=== PATIENT | female | born 1990 | race Caucasian/White ===

== ENCOUNTER 2017-01-24 14:18 | Inpatient (IN) | payer BC, OTHER ==
[~2017-01-24] VITALS: Ht 152.4 cm; Wt 73.2 kg
[2017-01-24] MEDS ORDERED: SODIUM CHLORIDE 0.9% 1,000 ML IV ONE (15:41)
[2017-01-24] MEDS ORDERED: ONDANSETRON 2MG/ML, 2ML IVPush ONE (16:00)
[2017-01-24] MEDS ORDERED: SODIUM CHLORIDE FLUSH 10ML SYR IVF ONE (16:00)
[2017-01-24] MEDS ORDERED: SODIUM CHLORIDE 0.9% 1,000ML IVBOLUS ONE (16:00)
[2017-01-24] MEDS ORDERED: ONDANSETRON 2MG/ML, 2ML ONE ×2 (16:02→23:05)
[2017-01-24] MEDS ORDERED: HYDROmorphone 1 MG/ML, 1ML ONE ×3 (16:02→23:35)
[2017-01-24] MEDS: HYDROmorphone 1 MG/ML, 1ML IVPush PRN ×2 (16:05→17:01)
[2017-01-24 16:14] LABS: ASPARTATE AMINO TRANSFERASE 14 U/L (15-37); BLOOD UREA NITROGEN 13 mg/dL (7-18)
[2017-01-24] MEDS ORDERED: OMNIPAQUE 350 MG/ML, 100ML BOTTLE ONE (18:43)
[2017-01-24] MEDS ORDERED: morphine SULFATE 10 MG/ML, 1ML ONE ×2 (19:21→20:49)
[2017-01-24] MEDS ORDERED: MORPHINE SULFATE 4 MG/ML, 1ML IVPush PRN (19:30)
[2017-01-24] MEDS ORDERED: CEFOTETAN PMX 2GM/50ML 50 ML IV ONE (19:30)
[2017-01-24] MEDS ORDERED: METH500T97 PO (19:41)
[2017-01-24] MEDS ORDERED: ONDA4TAB7 PO (19:42)
[2017-01-24] MEDS ORDERED: OXYC1TAB9 PO (19:42)
[2017-01-24] MEDS ORDERED: MORPHINE SULFATE 4 MG/ML, 1ML IVPush ONE ×2 (20:30→21:00)
[2017-01-24] MEDS ORDERED: BUPIVACAINE/PF-EPI 0.5% 1:200K ONE (22:04)
[2017-01-24] MEDS: FENTANYL PF 100 MCG/2ML IV PRN ×2 (22:28→22:39)
[2017-01-24] MEDS ORDERED: FENTANYL PF 100 MCG/2ML ONE (22:29)
[2017-01-24] MEDS ORDERED: MIDAZOLAM 1 MG/ML, 2ML ONE (23:03)
[2017-01-24] MEDS ORDERED: FENTANYL PF 250 MCG/5ML ONE (23:03)
[2017-01-24] MEDS ORDERED: METOCLOPRAMIDE 5 MG/ML, 2ML ONE (23:05)
[2017-01-24] MEDS ORDERED: NEOSTIGMINE 1 MG/ML, 10ML ONE (23:05)
[2017-01-24] MEDS ORDERED: DEXAMETHASONE 4 MG/ML, 1ML ONE (23:05)
[2017-01-24] MEDS ORDERED: ROCURONIUM 10 MG/ML ONE (23:05)
[2017-01-24] MEDS ORDERED: KETOROLAC 30 MG/1 ML ONE (23:05)
[2017-01-24] MEDS ORDERED: PROPOFOL 10 MG/ML, 20ML ONE (23:05)
[2017-01-24] MEDS ORDERED: SUCCINYLCHOLINE 20 MG/ML, 10ML ONE (23:05)
[2017-01-24] MEDS ORDERED: GLYCOPYRROLATE 0.2MG/1ML ONE (23:05)
[2017-01-24] MEDS ORDERED: BUPIVACAINE/PF-EPI 0.5% 1:200K IM ONE (23:13)
[2017-01-24] MEDS ORDERED: hydrALAzine 20 MG/ML, 1ML IV PRN (23:30)
[2017-01-24] MEDS ORDERED: MEPERIDINE/PF 25MG/0.5ML IVPush PRN (23:30)
[2017-01-24] MEDS ORDERED: METOCLOPRAMIDE 5 MG/ML, 2ML IV PRN (23:30)
[2017-01-24] MEDS ORDERED: ALBUTEROL/IPRATROPIUM 2.5MG/0.5MG, 3 ML NPPB PRN (23:30)
[2017-01-24] MEDS ORDERED: ONDANSETRON 2MG/ML, 2ML IVPush PRN (23:30)
[2017-01-24] MEDS ORDERED: OXYcodone 5 MG/5 ML ORAL.SOL UDC PO PRN (23:30)
[2017-01-24] MEDS ORDERED: LABETALOL 5MG/ML, 20ML IV PRN (23:30)
[2017-01-24] MEDS ORDERED: FENTANYL PF 100 MCG/2ML IV PRN (23:30)
[2017-01-24] MEDS ORDERED: MIDAZOLAM 1 MG/ML, 2ML IV PRN (23:30)
[2017-01-24] MEDS ORDERED: ACETAMINOPHEN 325 MG TABLET PO PRN (23:30)
[2017-01-24] MEDS ORDERED: PROMETHAZINE 25 MG/ML, 1ML IV PRN (23:30)
[2017-01-25] MEDS ORDERED: ACETAMINOPHEN 325 MG/10.15 ML UDC ONE (00:01)
[2017-01-25] MEDS ORDERED: FENTANYL PF 100 MCG/2ML ONE (00:01)
[2017-01-25] MEDS ORDERED: ACETAMINOPHEN 650 MG/20.3 ML UDC ONE (00:01)
[2017-01-25] MEDS ORDERED: OXYcodone 5 MG/5 ML ORAL.SOL UDC ONE (00:02)
[2017-01-25] MEDS ORDERED: HYDROmorphone 1 MG/ML, 1ML ONE (00:08)
[2017-01-25] MEDS: HYDROmorphone 1 MG/ML, 1ML IV PRN ×10 (00:10→22:46)
[2017-01-25] MEDS: FENTANYL PF 100 MCG/2ML IV PRN ×2 (00:18→00:29)
[2017-01-25] MEDS: KETOROLAC 30 MG/1 ML IV PRN ×3 (01:58→20:03)
[2017-01-25] MEDS ORDERED: LORazepam 1MG TABLET PO PRN (02:00)
[2017-01-25] MEDS ORDERED: ENALAPRILAT 1.25 MG/ML, 2ML IV PRN (02:00)
[2017-01-25] MEDS ORDERED: ACETAMINOPHEN 650 MG SUPP PR PRN (02:00)
[2017-01-25] MEDS ORDERED: LORazepam 2 MG/ML, 1ML IV PRN (02:00)
[2017-01-25] MEDS ORDERED: DIPHENHYDRAMINE 25 MG CAPSULE PO PRN (02:00)
[2017-01-25 02:01] VITALS: BP 92/48
[2017-01-25] MEDS: ENOXAPARIN 40 MG/0.4 ML SQ SCH (03:57)
[2017-01-25 05:43] LABS: BLOOD UREA NITROGEN 9 mg/dL (7-18)
[2017-01-25 06:55] VITALS: BP 102/58
[2017-01-25] MEDS: OXYcodone 5 MG/5 ML ORAL.SOL UDC PO PRN ×4 (07:30→21:55)
[2017-01-25] MEDS: CEFOTETAN PMX 1GM/50ML 50 ML IVPB SCH ×2 (08:08→19:41)
[2017-01-25] MEDS: LACTATED RINGERS 1,000 ML IV SCH ×3 (08:13→23:56)
[2017-01-25 15:44] VITALS: BP 95/62
[2017-01-25 15:45] VITALS: BP 96/60
[2017-01-25] MEDS: DIPHENHYDRAMINE 50 MG/ML, 1ML IV PRN (17:42)
[2017-01-25 18:57] VITALS: BP 99/62
[2017-01-25] MEDS: ONDANSETRON 2MG/ML, 2ML IV PRN (20:03)
[2017-01-26 00:04] VITALS: BP 123/81
[2017-01-26] MEDS: HYDROmorphone 1 MG/ML, 1ML IV PRN ×5 (00:47→10:07)
[2017-01-26] MEDS: ENOXAPARIN 40 MG/0.4 ML SQ SCH (02:00)
[2017-01-26] MEDS: DIPHENHYDRAMINE 50 MG/ML, 1ML IV PRN (02:00)
[2017-01-26] MEDS: OXYcodone 5 MG/5 ML ORAL.SOL UDC PO PRN ×4 (02:00→16:23)
[2017-01-26] MEDS: ONDANSETRON 2MG/ML, 2ML IV PRN ×2 (03:10→09:02)
[2017-01-26] MEDS: KETOROLAC 30 MG/1 ML IV PRN ×2 (05:47→12:18)
[2017-01-26 06:59] VITALS: BP 94/52
[2017-01-26] MEDS: LACTATED RINGERS 1,000 ML IV SCH ×3 (07:36→09:05)
[2017-01-26] MEDS: ACETAMINOPHEN 325 MG TABLET PO PRN ×2 (10:31→16:23)
[2017-01-26] MEDS ORDERED: DOCUSATE 100 MG CAPSULE PO SCH (11:00)
[2017-01-26 13:09] VITALS: BP 104/68
[2017-01-26] MEDS ORDERED: DOCU-30 PO (15:49)
[2017-01-26] MEDS ORDERED: OXYC10TA6 PO (15:49)
[2017-01-26] MEDS ORDERED: ONDA4TAB7 PO (15:49)
[2017-01-26 16:21] VITALS: BP 123/82
== END 2017-01-26 16:30 | disposition home or self-care (01) | DRG 343 ==
LOC: ED 18:04 → EDIP 19:53 → 4NOR 01-25 01:00
PROVIDERS: ADMIT Surgery; ATTEND Surgery
PROC: 0DTJ4ZZ Resection of Appendix, Percutaneous Endoscopic Approach (ICD-10-PCS; principal; 2017-01-24 21:30)
DX: K35.80 Unspecified acute appendicitis (principal); G43.909 Migraine, unspecified, not intractable, without status migrainosus
CPT/HCPCS: 36415; 74177; 76700; 80048; 80053; 81003; 82040; 83690; 84703; 85025; 88304; 96361; 96374; 96375; 96376; J1100; J1170; J1650; J1885; J2250; J2405; J2704; J2710; J3010; J3490; Q9967; J0330; J1200; J2060; J2765; J7030; Q0163; S0074

== ENCOUNTER 2018-01-12 15:14 | Emergency (ER) | payer BC ==
[~2018-01-12] VITALS: Ht 152.4 cm; Wt 78.8 kg
[~2018-01-12 15:14] MED LIST: DOCU-131 PO; METH500T97 PO; ONDA4TAB7 PO; OXYC-432 PO; OXYC10TA6 PO
[2018-01-12 15:22] VITALS: BP 111/65
[2018-01-12 15:53] LABS: BASOPHILS # (AUTO) 0.03 x10^3/uL (0-0.1); BASOPHILS % (AUTO) 0 % (0-1); EOSINOPHILS # (AUTO) 0.08 x10^3/uL (0-0.4); EOSINOPHILS % (AUTO) 1 % (1-7); LYMPHOCYTES # (AUTO) 1.62 x10^3/uL (1-3.4); LYMPHOCYTES % (AUTO) 17 % (22-44); MD NO; MEAN CORPUSCULAR HEMOGLOBIN 30.5 pg (27.0-34.8); MEAN CORPUSCULAR VOLUME 89.9 fL (80-100); MEAN PLATELET VOLUME 8.2 fL (7.4-10.4); MONOCYTES # (AUTO) 0.54 x10^3/uL (0.2-0.8); MONOCYTES % (AUTO) 6 % (2-9); NEUTROPHILS # (AUTO) 7.31 x10^3/uL (1.8-6.8); NEUTROPHILS % (AUTO) 76 % (42-75); PLATELET COUNT 301 x10^3/uL (130-400); RED BLOOD COUNT 4.22 x10^6/uL (3.82-5.3); RED CELL DISTRIBUTION WIDTH 13.5 % (9.6-15.2)
[2018-01-12 15:57] LABS: MICROSCOPIC AUTO
[2018-01-12 16:01] LABS: CULTURE INDICATED? YES
[2018-01-12 16:03] LABS: ANION GAP 6 mmol/L (5-15); CHLORIDE 109 mmol/L (98-107); CREATININE 0.59 mg/dL (0.55-1.02)
[2018-01-12] MEDS ORDERED: CEFTRIAXONE 1,000 MG ONE (16:20)
[2018-01-12] MEDS ORDERED: ACETAMINOPHEN 325 MG TABLET ONE (16:20)
[2018-01-12] MEDS ORDERED: CEFTRIAXONE 1,000 MG IM ONE (16:30)
[2018-01-12] MEDS ORDERED: ACETAMINOPHEN 325 MG TABLET PO ONE (16:30)
== END 2018-01-12 16:35 | disposition home or self-care (01) ==
LOC: ED 16:10
DX: N30.90 Cystitis, unspecified without hematuria (principal)
CPT/HCPCS: 36415; 80048; 81001; 82040; 85025; 87086; 96372; 99284; J0696